=== PATIENT | female | born 1985 | race African-American/Black ===

== ENCOUNTER 2016-09-01 11:09 | Emergency (ER) | payer OTHER ==
[~2016-09-01] VITALS: Ht 157.5 cm; Wt 54.4 kg
[~2016-09-01 11:09] MED LIST: CLARITIN10 M2 PO; DOXYCYCLINE 10100 MG PO; FLONASE 0.05%50 MCG NASAL; MOTION RELIEF25 MG PO; PREDNISONE 20 M20 M1 PO; PRENATAL
[2016-09-01] MEDS ORDERED: DEXACIDIN EYE DR5 ML OP (13:17)
[2016-09-01 13:41] VITALS: BP 131/72
== END 2016-09-01 13:43 | disposition home or self-care (01) ==
LOC: ER 11:09
DX: H10.9 Unspecified conjunctivitis (principal); Z98.890 Other specified postprocedural states; S05.02XA Injury of conjunctiva and corneal abrasion without foreign body, left eye, initial encounter; X58.XXXA Exposure to other specified factors, initial encounter; Y93.89 Activity, other specified; Y92.89 Other specified places as the place of occurrence of the external cause; Y99.8 Other external cause status